=== PATIENT | female | born 1940 | race Caucasian/White ===

== ENCOUNTER 2018-06-18 22:03 | Inpatient (IN) | payer OTHER ==
[~2018-06-18] VITALS: Ht 160 cm; Wt 88.1 kg
[~2018-06-18 22:03] MED LIST: ASPIR-LOW81 MG PO; ASPIRIN81 M2 PO; AUGMENTIN875 MG PO; HYDROCHLOROTHIA25 MG PO; K-DUR10 MEQ PO; LEVOTHYROXINE88 MCG PO; NAPROSYN500 MG PO; NAPROXEN500 M1 PO; PRILOSEC40 MG PO; PROTONIX40 MG PO; TRAMADOL HCL50 MG PO; ZOFRAN4 MG PO
[2018-06-19 07:17] VITALS: BP 140/82
[2018-06-19 07:18] LABS: PTT 28.3 SEC (25-37)
[2018-06-19 14:13] LABS: HEMATOCRIT 38.3 % (36.0-46.0); HEMOGLOBIN 12.4 G/DL (11.9-15.5); MCV 83.6 FL (83-99)
[2018-06-19 14:51] VITALS: BP 143/74
[2018-06-19 19:39] VITALS: BP 141/72
[2018-06-20] VITALS (7 sets, daily range): BP systolic 117–131; BP diastolic 57–67
[2018-06-20 06:14] LABS: HEMATOCRIT 33.6 % (36.0-46.0); HEMOGLOBIN 10.8 G/DL (11.9-15.5); MCV 82.8 FL (83-99)
[2018-06-21 03:45] VITALS: BP 108/63
[2018-06-21 08:14] VITALS: BP 123/58
[2018-06-21 11:35] VITALS: BP 133/67
[2018-06-21 15:40] VITALS: BP 120/59
[2018-06-21 20:07] VITALS: BP 141/61
[2018-06-21 23:30] VITALS: BP 136/67
[2018-06-22 04:28] VITALS: BP 133/63
[2018-06-22] MEDS ORDERED: ASPIR-LOW81 MG PO (07:22)
[2018-06-22] MEDS ORDERED: OXYCODONE HCL5 MG PO (07:23)
[2018-06-22 11:25] VITALS: BP 153/70
== END 2018-06-22 13:16 | DRG 470 ==
LOC: ENRESERV 22:03 → 3WEST 06-19 06:40 → 2SOUTH 06-19 06:40 → ENRESERV 06-19 12:40 → 3WEST 06-19 14:29
PROVIDERS: Orthopaedic Surgery
PROC: 0SRB03A Replacement of Left Hip Joint with Ceramic Synthetic Substitute, Uncemented, Open Approach (ICD-10-PCS; principal; 2018-06-19)
DX: M16.12 Unilateral primary osteoarthritis, left hip (principal); I10 Essential (primary) hypertension; E03.9 Hypothyroidism, unspecified; Z87.891 Personal history of nicotine dependence; I34.0 Nonrheumatic mitral (valve) insufficiency; E66.9 Obesity, unspecified; Z68.34 Body mass index [BMI] 34.0-34.9, adult; K21.9 Gastro-esophageal reflux disease without esophagitis
CPT/HCPCS: 71045; 82948; 85014; 85018; 85610; 85730; J0131; J0690; J1100; J1170; J1885; J2001; J2405; J2710; J3010; J3475; J7050; J7120; J7643; S0020